=== PATIENT | male | born 1980 | race Caucasian/White ===

== ENCOUNTER → 2017-09-29 09:05 | Outpatient (REF) | payer SELFPAY | LOC: OM 09:05 | PROVIDERS: PCP Family Medicine; Visit Provider Nurse Practitioner Family | DX: Z02.83 Encounter for blood-alcohol and blood-drug test (principal) ==

== ENCOUNTER 2020-03-27 15:19 | Outpatient (REF) | payer OTHER, SELFPAY ==
[2020-03-28 14:18] LABS: COVID-19 RT-PCR UVMMC Result Negative (Negative)
== END 2020-03-27 15:20 | disposition home or self-care (01) ==
LOC: NCHCN 15:19
PROVIDERS: PCP Family Medicine; Visit Provider Physician Assistant Medical
DX: J06.9 Acute upper respiratory infection, unspecified (principal)
CPT/HCPCS: U0003

== ENCOUNTER 2020-05-23 17:57 | Outpatient (REF) | payer OTHER, SELFPAY ==
[2020-05-23 16:19] LABS: Hemoglobin A1C 5.6 % (<5.7)
[2020-05-23 16:29] LABS: Anion Gap 4.1 mmol/L (3-11); BUN 14 mg/dL (7-18); CO2 28.9 mmol/L (21.0-32.0); Calcium 9.4 mg/dL (8.5-10.1); Calculated LDL 143 mg/dL (<100); Chloride 104 mmol/L (98-107); Cholesterol 213 mg/dL (<200); Glucose 121 mg/dL (74-106); HDL Cholesterol 48 mg/dL (40-60); Sodium 137 mmol/L (136-145); TSH (W/Ref FT4) 0.77 uIU/mL (0.36-3.74); Triglyceride 110 mg/dL (<150)
== END 2020-05-23 17:58 | disposition home or self-care (01) ==
LOC: NCHCN 17:57
PROVIDERS: PCP Family Medicine; Visit Provider Family Medicine
DX: Z00.00 Encounter for general adult medical examination without abnormal findings (principal); I10 Essential (primary) hypertension; Z13.1 Encounter for screening for diabetes mellitus; Z13.220 Encounter for screening for lipoid disorders
CPT/HCPCS: 80048; 80061; 83036; 84443

== ENCOUNTER 2020-06-27 03:58 | Emergency (ER) | payer OTHER, SELFPAY ==
--- NOTE | 2020-06-27 04:00 | DI.RAD_ITS ---
Exam(s) XR FOOT RT COMPLETE EXAM: XR FOOT RT COMPLETE CLINICAL HISTORY: squished in machinery, pain at 1st mtp joint. TECHNIQUE: 2D digital imaging was performed. COMPARISON: No exams were available for comparison FINDINGS: BONES: There is an osseous density seen on the PA view lateral to the lateral sesamoid. On the later al view, there is a density seen on the dorsum of the foot adjacent to the head of the 1st metatarsal which may be the same bony fragment. A fracture cannot be excluded. Please correlate with the andrea ent's site of pain. A CT scan of the foot may be obtained for further evaluation. No bony destructi ve lesion is seen. JOINTS: No dislocation present. SOFT TISSUE: There is soft tissue swelling at the metatarsophalangeal joint region. IMPRESSION: DATA REPOSITORY: RADIATION DOSE DELIVERED:
[2020-06-27 04:02] VITALS: BP 169/92; PULSE 74; RESP 16; TEMP 37.2; O2SAT 98
--- NOTE | 2020-06-27 04:10 | ED.GENADUL_ITS ---
Discharge Plan Disposition Patient Disposition: HOME Condition: Good Discharge Details Clinical Impression: Acute pain of right foot, Contusion of foot, right, Fracture of sesamoid bone Primary Care Provider: Demetri Bertrand ED Provider: Tristen Simental Home Meds and New Rx's Prescriptions: Continued lisinopril-hydrochlorothiazide 10-12.5 mg tablet 1 tab PO DAILY RF: 0 buprenorphine-naloxone 2-0.5 mg film 1 film sublingual HS RF: 0 buprenorphine-naloxone 8-2 mg film 1 film sublingual DAILY RF: 0 Discharge Instructions Instructions: Foot Contusion (ED) Additional Instructions: At this time your x-ray shows no evidence of significant fracture. You likely sprained the ligaments and bruised the bone. There is a questionable small crack in the sesamoid bone that we discussed. Sometimes there is an extremely small fracture that we cannot see on x-ray. Regardless, your foot needs time to heal. Please use the crutches for the next week, and gradually begin to apply pressure on your foot as tolerated. Used the walking boot to help as you transition from nonweightbearing to weightbearing. Take Tylenol and Motrin to help with the pain. If you notice any worsening of your symptoms, or any new symptoms such as vomiting, diarrhea, fever, chills, shortness of breath, chest pain, numbness, weakness, or fainting , please return immediately to the emergency department for reevaluation. Please follow up with your primary care provider as soon as possible for reassessment and reevaluation. As always, it was a pleasure participating in your medical care today. Stand Alone Forms: Work Release Referrals: Kaylynn Cordova MD [ [facility] STAFF PHYSICIAN] - Medical Decision Making 40-year-old male presents today for evaluation of right foot pain. About an hour prior to arrival the patient was at work when he states that 2 pieces of machinery caught his foot, and his toes upward and applied significant pressure to the ball of his right foot. He was wearing his steel toed boots. He has had pain in his foot since then. Pain is located primarily in the ball of his right foot. He denies numbness or tingling. No other significant trauma. No other complaints at this time. Pain is made worse with ambulation. Improved with nothing. Exam demonstrates mild swelling and tenderness over the first MTP joint in the right foot, mild tenderness below the medial malleolus. No other evidence of trauma. Suspect potential bruise/contusion versus small fracture of the first metatarsal. Will monitor closely, give Tylenol Motrin and reassess. 5:19 AM Patient feeling better, pain notably improved with NSAIDs and walking boot and crutches. X-ray results have returned from radiology and there is a questionable small sesamoid fracture that is noted over the area of pain. No other acute process otherwise. Did discuss CT imaging and patient has declined at this time. At this time patient will be discharged with a walking boot, crutches and recommended to remain nonweightbearing for the next week. Discussed red flags which to return. I have extensively reviewed the treatment plan and discharge instructions with the patient. I have addressed all patient concerns at this time. The patient was made aware of what symptoms to monitor for that would warrant a return to the emergency department. Discussed the plan with the patient, they demonstrate verbal understanding and agreement with our assessment and plan at this time. The documentation in this chart was dictated using [employer]ian[employer] dictation software. Please excuse any dictation errors. FINDINGS: Bones/joints: On the PA view of the foot, there is apparent deformity of the lateral aspect of the lateral sesamoid bone. A sesamoid fracture is not confidently excluded. This finding is not confidently redemonstrated on other views. Given the history of trauma in this location, CT imaging could be obtained for additional evaluation. Otherwise, no acute fracture is seen in the right foot. Soft tissues: No gross soft tissue abnormality is demonstrated. IMPRESSION: Apparent bony deformity of the lateral aspect of the lateral sesamoid bone associated with the 1st MTP joint. A sesamoid fracture could have this appearance; however, this finding is not redemonstrated on other views. CT imaging could be obtained for additional evaluation, as clinically warranted. Otherwise, no acute fracture is seen in the foot. Thank you for allowing us to participate in the care of your patient. Dictated and Authenticated by: Sridhar Gardner MD 06/27/2020 5:12 AM Eastern Time ([place] & [place]) HPI General Date/Time Provider Initiated Documentation: 06/27/20 03:59 . HPI Narrative: 40-year-old male presents today for evaluation of right foot pain. About an hour prior to arrival the patient was at work when he states that 2 pieces of machinery caught his foot, and his toes upward and applied significant pressure to the ball of his right foot. He was wearing his steel toed boots. He has had pain in his foot since then. Pain is located primarily in the ball of his right foot. He denies numbness or tingling. No other significant trauma. No other complaints at this time. Pain is made worse with ambulation. Improved with nothing. Related Data Home Medications Medication Instructions Recorded Confirmed buprenorphine-naloxone 1 film SUBLINGUAL DAILY 06/27/20 06/27/20 buprenorphine-naloxone 1 film SUBLINGUAL HS 06/27/20 06/27/20 lisinopril-hydrochlorothiazide 1 tab PO DAILY 06/27/20 06/27/20 Allergies Allergy/AdvReac Type Severity Reaction Status Date / Time Penicillins Allergy Skin Rash Unverified 06/27/20 04:09 General Stated Complaint: Orthopedic YAMILKA: 4 Review of Systems All systems reviewed & are unremarkable except as noted in HPI and below PFSH Social History Smoking/Tobacco Use Status: Current every day Tobacco Type: cigarettes and e- cigarettes Smoking risk assessment performed?: Yes Alcohol Intake: never Drug use: Never Do you feel safe at home: Yes Exam Narrative Exam Narrative: 1.Const: Well-nourished, Well-developed, appearing stated age 2.Eyes: PERRL, no conjunctival injection, and symmetrical lids. 3.ENT: Atraumatic external nose and ears. Moist MM. Neck: Symmetric, trachea midline, No thyromegaly. 4.CVS: +S1/S2, No murmurs or gallops. Peripheral pulses 2+ and equal in all extremities. Brisk capillary refill in all extremities. 5.RESP: Unlabored respiratory effort. Clear to auscultation bilaterally. No wheezes rales or rhonchi 6.GI: Soft, Nontender/Nondistended, No hepatosplenomegaly. No guarding or rebound. 7.MSK: Normocephalic patient's right foot demonstrates tenderness at the metatarsal phalangeal joint of the great toe. No tenderness in the ankle, but there is mild tenderness just below the medial malleolus of the right ankle. No lateral tenderness. Normal movement strength and sensation for the toes. Normal capillary refill. There appears to be minimal swelling around the first MTP joint. 8.Skin: Warm, Dry. No rashes or lesions. 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 Sensation grossly intact, no focal neurologi c deficits. 10.Psych: (AAO) x3. Appropriate mood and affect Course Vital Signs Vital signs: Vital Signs Temperature 37.2 C 06/27/20 04:02 Pulse 74 06/27/20 04:02 Respiratory Rate 16 06/27/20 04:02 Blood Pressure 169/92 H 06/27/20 04:02 Pulse Oximetry 98 06/27/20 04:02 Temperature 37.2 C 06/27/20 04:02 Temperature Source Skin 06/27/20 04:02 Pulse 74 06/27/20 04:02 Respiratory Rate 16 06/27/20 04:02 Respiratory Effort Non-Labored 06/27/20 04:09 Blood Pressure 169/92 H 06/27/20 04:02 Blood Pressure Position Sitting 06/27/20 04:02 Pulse Oximetry 98 06/27/20 04:02 Oxygen Delivery Method Room Air 06/27/20 04:02 Oxygen Flow Rate 0 06/27/20 04:02 Pain Level 0 06/27/20 04:02 Comment 06/27/20 04:02
[2020-06-27] MEDS: Ibuprofen 800 MG TAB PO (04:17)
[2020-06-27] MEDS: Acetaminophen 500 MG TAB 1000 MG PO (04:17)
--- NOTE | 2020-06-27 05:12 | DI.VRAD_ITS ---
PROCEDURE INFORMATION: Exam: XR Right Foot Complete; Alignment Exam date and time: 06/27/2020 4:05 AM Age: 40 years old Clinical indication: Other: Squished in machinery, pain at 1st mtp joint TECHNIQUE: Imaging protocol: XR Right foot. Views: 3 or more views. Including weight bearing lateral view. COMPARISON: No relevant prior studies available. FINDINGS: Bones/joints: On the PA view of the foot, there is apparent deformity of the lateral aspect of the lateral sesamoid bone. A sesamoid fracture is not confidently excluded. This finding is not confidently redemonstrated on other views. Given the history of trauma in this location, CT imaging could be obtained for additional evaluation. Otherwise, no acute fracture is seen in the right foot. Soft tissues: No gross soft tissue abnormality is demonstrated. IMPRESSION: Apparent bony deformity of the lateral aspect of the lateral sesamoid bone associated with the 1st MTP joint. A sesamoid fracture could have this appearance; however, this finding is not redemonstrated on other views. CT imaging could be obtained for additional evaluation, as clinically warranted. Otherwise, no acute fracture is seen in the foot. Dictated and Authenticated by: Sridhar Gardner MD. Ordering:ARTHUR Ramon MD
[2020-06-27 05:19] VITALS: BP 129/81
== END 2020-06-27 05:21 | disposition home or self-care (01) ==
LOC: ER 04:34
PROVIDERS: Emergency Provider Student in an Organized Health Care Education/Training Program; PCP Family Medicine
DX: S97.81XA Crushing injury of right foot, initial encounter (principal); S92.811A Other fracture of right foot, initial encounter for closed fracture; W23.1XXA Caught, crushed, jammed, or pinched between stationary objects, initial encounter; Y99.0 Civilian activity done for income or pay
CPT/HCPCS: 28470; 73630

== ENCOUNTER 2021-09-11 09:18 | Outpatient (REF) | payer OTHER, SELFPAY ==
[2021-09-11 16:13] LABS: Anion Gap 10.4 mmol/L (3-11); BUN 17 mg/dL (7-18); CO2 24.6 mmol/L (21.0-32.0); Calcium 8.9 mg/dL (8.5-10.1); Chloride 101 mmol/L (98-107); Glucose 106 mg/dL (74-106); Potassium 4.1 mmol/L (3.5-5.1); Sodium 136 mmol/L (136-145)
== END 2021-09-11 09:19 | disposition home or self-care (01) ==
LOC: NCHCN 09:18
PROVIDERS: PCP Family Medicine; Visit Provider Family Medicine
DX: I10 Essential (primary) hypertension (principal)
CPT/HCPCS: 80048

== ENCOUNTER 2022-12-10 13:07 | Outpatient (REF) | payer OTHER, SELFPAY ==
[2022-12-10 15:31] LABS: Anion Gap 7.8 mmol/L (3-11); BUN 14 mg/dL (7-18); CO2 27.2 mmol/L (21.0-32.0); CREATININE 0.9 mg/dL (0.70-1.30); Calcium 9.8 mg/dL (8.5-10.1); Chloride 102 mmol/L (98-107); Estimated GFR 109.36 (mL/min/1.73m2); Glucose 98 mg/dL (74-106); Potassium 4.3 mmol/L (3.5-5.1); Sodium 137 mmol/L (136-145)
== END 2022-12-10 13:08 | disposition home or self-care (01) ==
LOC: NCHCN 13:07
PROVIDERS: PCP Family Medicine; Visit Provider Family Medicine
DX: I10 Essential (primary) hypertension (principal)
CPT/HCPCS: 80048

== ENCOUNTER 2024-01-07 16:41 | Outpatient (REF) | payer OTHER, SELFPAY ==
[2024-01-07 15:34] LABS: ALT 43 U/L (16-63); AST 23 U/L (15-37); Albumin 4.1 g/dL (3.4-5.0); Alkaline Phosphatase 112 U/L (46-116); BUN 11 mg/dL (7-18); Bilirubin, Total 0.27 mg/dL (0.2-1.0); Calcium 9.5 mg/dL (8.5-10.1); Calculated LDL 147 mg/dL (<100); Chloride 102 mmol/L (98-107); Cholesterol 237 mg/dL (<200); Estimated GFR 95.77 (mL/min/1.73m2); Glucose 108 mg/dL (74-106); HDL Cholesterol 44 mg/dL (40-60); Potassium 4.3 mmol/L (3.5-5.1); Sodium 140 mmol/L (136-145); Triglyceride 230 mg/dL (<150)
== END 2024-01-07 16:42 | disposition home or self-care (01) ==
LOC: NCHCN 16:41
PROVIDERS: PCP Family Medicine; Visit Provider Nurse Practitioner Family
DX: Z00.00 Encounter for general adult medical examination without abnormal findings (principal)
CPT/HCPCS: 80053; 80061

== ENCOUNTER 2025-01-18 11:05 | Outpatient (REF) | payer OTHER, SELFPAY ==
[2025-01-18 18:10] LABS: ALT 31 U/L (10-49); AST 22 U/L (<34); Albumin 4.3 g/dL (3.2-5.0); Alkaline Phosphatase 88 U/L (46-116); Anion Gap 3.7 mmol/L (3-11); BUN 14 mg/dL (9-23); Bilirubin, Total 0.20 mg/dL (0.2-1.2); CO2 27.3 mmol/L (20.0-31.0); Calcium 9.2 mg/dL (8.3-10.6); Chloride 107 mmol/L (98-107); Cholesterol 217 mg/dL (<200); Glucose 81 mg/dL (74-106); HDL Cholesterol 38 mg/dL (>40); Potassium 4.8 mmol/L (3.5-5.1); Sodium 138 mmol/L (136-145); Total Protein 6.8 g/dL (5.7-8.2)
== END 2025-01-18 11:06 | disposition home or self-care (01) ==
LOC: NCHCN 11:05
PROVIDERS: PCP Family Medicine; Visit Provider Nurse Practitioner Family
DX: Z00.00 Encounter for general adult medical examination without abnormal findings (principal)
CPT/HCPCS: 80053; 80061